=== PATIENT | male | born 1990 | race American Indian/Alaskan Native ===

== ENCOUNTER 2016-09-26 16:30 | Inpatient (IN) | payer BC ==
[2016-09-26] MEDS ORDERED: AMBIEN PO PRN (17:21)
[2016-09-26] MEDS ORDERED: ALUM-MAG HYDROX-SIMETH 200-200-20MG/5ML PO PRN (17:21)
[2016-09-26] MEDS ORDERED: D50W (25GM) IV PRN (17:21)
[2016-09-26] MEDS ORDERED: LEVEMIR SUB-Q SCH (21:00)
[2016-09-26] MEDS: LOPRESSOR PO SCH (22:48)
[2016-09-27 06:19] LABS: Hematocrit 35.7 % (35.5-45.6); Hemoglobin 11.6 gm/dl (11.8-15.2); Mean Corpuscular HGB Conc 33 % (32-34); Mean Corpuscular Volume 78 fl (84-94); Platelet Count 415 K/mm3 (140-440); Red Blood Count 4.61 M/mm3 (3.65-5.03); Red Cell Distribution Width 15.5 % (13.2-15.2); White Blood Count 11.6 K/mm3 (4.5-11.0)
[2016-09-27 06:27] LABS: Mean Corpuscular Hemoglobin 25 pg (28-32)
[2016-09-27 07:27] LABS: Alanine Aminotransferase 109 units/L (7-56); Albumin 3.6 g/dL (3.9-5); Albumin/Globulin Ratio 0.9 %; Alkaline Phosphatase 92 units/L (35-129); Anion Gap 24 mmol/L; BUN/Creatinine Ratio 14.16; Bilirubin,Total 0.5 mg/dL (0.1-1.2); Blood Urea Nitrogen 17 mg/dL (9-20); Calcium 9.2 mg/dL (8.4-10.2); Carbon Dioxide 22 mmol/L (22-30); Chloride 98.3 mmol/L (98-107); Glucose 166 mg/dL (75-100); Potassium 4.2 mmol/L (3.6-5.0); Sodium 140 mmol/L (137-145); Total Protein 7.6 g/dL (6.3-8.2)
[2016-09-27] MEDS ORDERED: NOVOLOG SUB-Q SCH (07:30)
[2016-09-27 08:32] LABS: Blastocytes % (Manual) 0 %
[2016-09-27 08:34] LABS: Anisocytosis 1+; Polychromasia Few
[2016-09-27 08:35] LABS: Hypochromasia 1+
[2016-09-27 08:36] LABS: Diff Status Complete
[2016-09-27] MEDS: NORVASC PO SCH (09:56)
[2016-09-27] MEDS: LOPRESSOR PO SCH ×2 (09:57→22:00)
[2016-09-27] MEDS: LOVENOX SUB-Q SCH (09:58)
--- NOTE | 2016-09-27 10:19 | History and Physical Report ---
History of Present Illness Date: 09/27/16 Referring Facility: [facility] Date of admission: 09/26/16 16:30 Chief Complaint: critical illness myopathy History of present illness: POST ADMISSION PHYSICIAN EVALUATION ONSET DATE: 09/05/2016 IMPAIRMENT GROUP CODE: 03.8 ETIOLOGIC DIAGNOSIS: critical illness myopathy STATUS CHANGES SINCE PREADMISSION SCREENING: PAS has been reviewed. In comparison, pt with shortness of breath with activity and desat into the 80s with therapy this AM; recovered with initiation of oxygen. Pt denies shortness of breath at rest; will wean oxygen as tolerated. Pt also with some lightheadedness with initial standing; follow for orthostasis with prolonged hospital course. Pt continues with generalized weakness; remains an appropriate candidate for IRU admission. 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 male admitted to [facility] due to 2-3 day course of nausea and vomiting; also with associated altered mental status and dysarthria upon presentation. Pt was intubated by EMS; blood sugar >500. Pt treated for DKA, new diagnosis on admission; acute renal failure, now resolved; aspiration pneumonia, treated with levaquin and Zyvox; sepsis secondary to Group B Strep, treated with Zosyn, Vanc, Ancef, Meropenem during course. Pt extubated on 2016; noted to have severe physical deconditioning. Passed swallowing evaluation for regular consistency diet. Pt is now admitted to IRU for aggressive therapies and ongoing medical management. Past History Past Medical History: diabetes, hypertension Past Surgical History: No surgical history (pt denies) Social history: single, lives with family. denies: smoking, alcohol abuse Family history: diabetes, hypertension Medications and Allergies Allergies Allergy/AdvReac Type Severity Reaction Status Date / Time No Known Allergies Allergy Unverified 09/26/16 16:55 Active Meds: Active Medications Al Hydrox/Mg Hydrox/Simethicone (Alum-Mag Hydrox-Simeth [id number]/5ml) 30 ml PO Q4H PRN PRN Reason: Indigestion Amlodipine Besylate (Norvasc) 10 mg PO QDAY [facility] Last Admin: 09/27/16 09:56 Dose: 10 mg Dextrose (D50w (25gm)) 50 ml IV PRN PRN PRN Reason: Hypoglycemia Enoxaparin Sodium (Lovenox) 40 mg SUB-Q QDAY [facility] Last Admin: 09/27/16 09:58 Dose: 40 mg Insulin Aspart (Novolog) 15 units SUB-Q AC [facility] Last Admin: 09/27/16 09:26 Dose: Not Given Insulin Detemir (Levemir) 65 units SUB-Q QHS [facility] Last Admin: 09/26/16 22:44 Dose: 65 units Metoprolol Tartrate (Lopressor) 50 mg PO BID [facility] Last Admin: 09/27/16 09:57 Dose: 50 mg Zolpidem Tartrate (Ambien) 5 mg PO QHS PRN PRN Reason: Sleep Review of Systems All systems: negative Constitutional: poor appetite Ears, nose, mouth and throat: no headache Cardiovascular: lightheadedness Respiratory: dyspnea on exertion, no cough Gastrointestinal: nausea (intermittently with meals), no vomiting, no constipation (last BM on yesterday) Genitourinary Male: no dysuria Musculoskeletal: muscle weakness, gait dysfunction Neurological: no parathesias, no numbness Exam - Constitutional Vitals: Vital Signs - 12hr 09/26/16 09/27/16 09/27/16 22:48 07:16 09:56 Temperature 97.6 F Pulse Rate 106 H 104 H Pulse Rate [ 104 H Right Radial] Respiratory 18 Rate Blood Pressure 150/76 155/80 Blood Pressure 155/80 [Right Arm] O2 Sat by Pulse 98 Oximetry 09/27/16 09:57 Temperature Pulse Rate 104 H Pulse Rate [ Right Radial] Respiratory Rate Blood Pressure 155/80 Blood Pressure [Right Arm] O2 Sat by Pulse Oximetry General appearance: no acute distress, obese, other (mother present; sitting in WC) - EENT Eyes: EOM intact ENT: hearing intact - Neck Neck: supple, normal ROM - Respiratory Respiratory effort: normal (oxygen via nasal cannula) Respiratory: bilateral: CTA - Cardiovascular Rhythm: regular Heart Sounds: Present: S1 & S2 - Extremities Extremities: No edema - Gastrointestinal General gastrointestinal: Present: soft, non-tender, non-distended, normal bowel sounds - Integumentary Integumentary: Present: dry - Musculoskeletal Musculoskeletal: generalized weakness (mild tremors noted with AROM and any applied resistance) - Neurologic Neurologic: CNII-XII intact, moves all extremities (3/5 strength) - Psychiatric Psychiatric: appropriate mood/affect, intact judgment & insight, memory intact, cooperative - Allied health notes FIMS assesment as documented by PT/OT/ST: Social interaction/Memory/Problem solving Social Interaction FIM Score 7. Complete [place] (Interacts appropriately. Controls temper.) Memory FIM Score 6. Modified [place](Mild difficulty remembering people/routines.) Problem Solving FIM Score 7. Complete [place] (Solves complex problems. Self corrects.) Eating Eating Device Adapted Utensil,Adapted Cup,Adapted Plate/Bowl, Non-Slip Pad,Plate Guard,ADL Orthotic Eating FIM Score 5. Supervision/Set-Up (Needs help w/ containers , cutting meat, etc.) - Labs CBC & Chem 7: 09/27/16 05:31 09/27/16 05:31 Labs: Laboratory Results - last 72 hr 09/27/16 09/27/16 09/27/16 05:31 05:31 05:31 WBC 11.6 H RBC 4.61 Hgb 11.6 L Hct 35.7 MCV 78 L MCH 25 L MCHC 33 RDW 15.5 H Plt Count 415 Add Manual Diff Complete Total Counted 100 Seg Neuts % (Manual) 84.0 H Band Neutrophils % 1.0 Lymphocytes % (Manual) 7.0 L Reactive Lymphs % (Man) 0 Monocytes % (Manual) 0 Eosinophils % (Manual) 4.0 Basophils % (Manual) 1.0 Metamyelocytes % 1.0 Myelocytes % 2.0 Promyelocytes % 0 Blast Cells % 0 Nucleated RBC % Not Reportable Seg Neutrophils # Man 9.7 H Band Neutrophils # 0.1 Lymphocytes # (Manual) 0.8 L Abs React Lymphs (Man) 0.0 Monocytes # (Manual) 0.0 Eosinophils # (Manual) 0.5 H Basophils # (Manual) 0.1 Metamyelocytes # 0.1 Myelocytes # 0.2 Promyelocytes # 0.0 Blast Cells # 0.0 WBC Morphology Not Reportable Hypersegmented Neuts Not Reportable Hyposegmented Neuts Not Reportable Hypogranular Neuts Not Reportable Smudge Cells Not Reportable Toxic Granulation Not Reportable Toxic Vacuolation Not Reportable Dohle Bodies Not Reportable Pelger-Huet Anomaly Not Reportable Nadja Rods Not Reportable Platelet Estimate Appears normal Clumped Platelets Not Reportable Plt Clumps, EDTA Not Reportable Large Platelets Not Reportable Giant Platelets Not Reportable Platelet Satelliting Not Reportable Plt Morphology Comment Not Reportable RBC Morphology Not Reportable Dimorphic RBCs Not Reportable Polychromasia Few Hypochromasia 1+ Poikilocytosis Not Reportable Anisocytosis 1+ Microcytosis Not Reportable Macrocytosis Not Reportable Spherocytes Not Reportable Pappenheimer Bodies Not Reportable Sickle Cells Not Reportable Target Cells Not Reportable Tear Drop Cells Not Reportable Ovalocytes Not Reportable Helmet Cells Not Reportable Francis-Dinwiddie Bodies Not Reportable [place] Rings Not Reportable Shannan Cells Not Reportable Bite Cells Not Reportable Crenated Cell Not Reportable Elliptocytes Not Reportable Acanthocytes (Spur) Not Reportable Rouleaux Not Reportable Hemoglobin C Crystals Not Reportable Schistocytes Not Reportable Malaria parasites Not Reportable Edward Bodies Not Reportable Hem Pathologist Commnt Sent to pathology Sodium 140 Potassium 4.2 Chloride 98.3 Carbon Dioxide 22 Anion Gap 24 BUN 17 Creatinine 1.2 Estimated GFR > 60 BUN/Creatinine Ratio 14.16 Glucose 166 H Hemoglobin A1c 11.1 H Calcium 9.2 Total Bilirubin 0.5 AST 88 H ALT 109 H Alkaline Phosphatase 92 Total Protein 7.6 Albumin 3.6 L Albumin/Globulin Ratio 0.9 Assessment and Plan Assessment and plan: 26 y.o. male newly diagnosed with DM, in DKA on acute care admission; s/p acute respiratory failure, extubated on 09/16; acute renal failure; aspiration pneumonia ; sepsis secondary to Group B Strep; critical illness myopathy leading to generalized weakness and gait dysfunction. The patient is medically stable, however, requires ongoing medical management. Pt is appropriate for inpatient rehabilitation admission and is thought to be able to tolerate at least 3 hours of therapy a day, 5 days a week including 1.5 hours of physical therapy and 1.5 hours of occupational therapy. Patient is able to understand and follow basic directions and has attainable rehab goals. Potential barriers/complications include falls, DVT, PE, hypoglycemia, hypotension, syncope, depression. Plan 1. Rehabilitation- Pt will undergo multidisciplinary/integrative rehab PT/OT, Nursing. Areas to be addressed include, but are not limited to PT for mobility , strengthening, transfer training, ROM, endurance, stairs, balance; OT for ADLs , household tasks, adaptive equipment; Nursing for carryover of therapies, pain control, education, skin integrity, medication management, bowel/bladder management; Nutrition as needed; supervisor volunteer services for discharge planning and equipment needs. Potential interventions include appropriate assistive device or adaptive equipment. Expected overall level of functional improvement by discharge is Mary to supervision for ADLs, gait, and transfers. Pt will tentatively be discharged home with outpatient PT/OT. Estimated length of stay is 10-14 days. 2. critical illness myopathy- ongoing PT/OT to address weakness, proximal> distal; pt educated on safety due to weakness; short of breath with activity with drop in oxygen saturation to 80s; Oxygen initiated; wean as tolerated 3. DM- pt with decreased po intake; blood sugars 140s-160s since admission; HgA1c 11.2. Pt at high risk for hypoglycemia with low po intake and high doses of insulin on admission; will decrease levemir to 10U QHS and change mealtime insulin to sliding scale (on 65U levemir and 15U AC on admission from OSH); follow and adjust as needed; Dietitian consulted; education provided to pt and mother regarding DM; recommend pt obtain on line csr at discharge (will refer) 4. HTN- continue current regimen; follow closely, avoid hypotension 5. ?diabetic gastroparesis- intermittent nausea with meals; add prn reglan; no vomiting or nausea on today 6. 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
[2016-09-27] MEDS: NOVOLOG SUB-Q SCH ×2 (12:31→17:25)
--- NOTE | 2016-09-27 21:46 | IRU Plan of Care ---
Interdisciplinary Plan of Care - IP IRU INTERDISCIPLINARY PLAN: [facility] Inpatient Rehab Unit Plan of Care IRU Interdisciplinary Care Plan Start: 09/26/16 18: 15 Freq: Admission then PRN Status: Active Document 09/27/16 18:17 DB (Rec: 09/27/16 18:20 DB [id number]) Interdisciplinary Problem List Interdisciplinary Problem List Interdisciplinary Problem List Impaired Bathing/Grooming Query Text:Answers will Trigger Problems Impaired Dressing and Outcomes on Worklist. Impaired Mobility Impaired Transfers Impaired Toileting Pain Management Knowledge Deficits Impaired Home Management Impaired Safety Medications Education Diabetes Education IRU Interdisciplinary Care Plan Therapy Services Therapy Services Will Include: Physical Therapy Query Text:Patient will be seen for a Occupational Therapy minimum of 3 hours of daily therapy 5 out of 7 days a week. Therapy intensity may be adjusted within a 7 consecutive day period to effectively serve the individual needs of the patient. Treatment Frequency/Intensity/Duration Treatment Frequency 5 days per week Treatment Intensity 1.5 hours per discipline (PT/OT ) daily Treatment Duration 10 - 14 days Problem Area: Eating/Swallowing Eating/Swallowing Outcomes Eating/Swallowing Interventions Problem Area: Bathing/Grooming Bathing/Grooming Outcomes Improve [place] w/ Grooming Improve [place] w/ Bathing Bathing/Grooming Interventions ADL Training Use of Assistive Devices Therapeutic Exercise Therapeutic Activity Balance Work Activity Tolerance Work Patient/Caregiver Education Problem Area: Dressing Dressing Outcomes Improve [place] w/ UB Dressing Improve [place] w/ LB Dressing Dressing Interventions ADL Training Use of Assistive Devices Therapeutic Exercise Balance Work Patient/Caregiver Education Problem Area: Mobility Mobility Outcomes Improve [place] w/ Bed Mobility Improve [place] w/ Ambulation Improve [place] w/ Stairs /Curb Improve [place] w/ Wheelchair Mobility Interventions Therapeutic Exercise Neuromuscular Re-Ed. Modalities Use of Assistive Devices Patient/Caregiver Education Bed Mobility Work Gait Training W/C Mobility Work Problem Area: Transfers Transfers Outcomes Improve [place] w/ Bed Transfers Improve [place] w/ Toilet Transfers Improve [place] w/ Tub/ Shower Transfers Improve [place] w/ Car Transfers Transfers Interventions Transfer Training Therapeutic Exercise Activity Tolerance Work Use of Assistive Devices Patient/Caregiver Education Problem Area: Bowel/Bladder Managment Bowel/Bladder Outcomes Bowel/Bladder Interventions Problem Area: Toileting Toileting Outcomes Improve [place] w/ Toileting Toileting Interventions ADL Training Balance Work Use of Assistive Devices Patient/Caregiver Education Problem Area: Nutrition Nutrition Outcomes Understand and Comply w/ Diet Improve/Maintain Oral Intake Nutrition Interventions Nutritional Counseling Monitor Nutrient Intake Patient/Caregiver Education Problem Area: Comprehension Comprehension Outcomes Comprehension Interventions Problem Area: Expression Expression Outcomes Expression Interventions Problem Area: Problem Solving Problem Solving Outcomes Problem Solving Interventions Problem Area: Memory Memory Outcomes Memory Interventions Problem Area: Pain Management Pain Management Outcomes Demonstrate/Verbalize Pain Strategies Pain Management Interventions Medication Management Positioning/Turning Patient/Caregiver Education Problem Area: Knowledge Deficits Knowledge Deficits Outcomes Demonstrate Ability to Manage Blood Glucose Knowledge Deficits Interventions Disease/Injury/Sx. Intervention Education Medication Use Education Disease Management Education Health Maintainence Education Safety Education Problem Area: Skin/Tissue Integrity Skin/Tissue Integrity Outcomes Demonstrate Understanding of Pressure Relief Skin/Tissue Integrity Interventions Skin/Wound Care Pressure Relief Instruction Positioning/Turning Problem Area: Social Interaction Social Interaction Outcomes Social Interaction Interventions Problem Area: Adjustment to Disability Adjustment to Disability Outcomes Adjustment to Disability Interventions Problem Area: Discharge Concerns Discharge Concerns Outcomes Discharge Home w/ Necessary Equipment Have Home Health/Outpatient Services Discharge Concerns Interventions Discharge Planning Family/Caregiver Conference Family/Caregiver Training Problem Area: Community Reintegration Community Reintegration Outcomes Demonstrate Understanding of Community Resources Community Reintegration Interventions Provide Community Resources Problem Area: Home Management Home Management Outcomes Improve [place] w/ Home Management Home Management Interventions Clothing Care Activity Tolerance Work Patient/Caregiver Education Problem Area: Safety Safety Outcomes Provide Safe Environment Perform Selfcare Safely Demonstrate Good Safety w/ Transfers/Mobility Safety Interventions Identify Fall Risk [place] Pt. to Environment Reduce Environmental Hazards Problem Area: Medication Education Medication Education Outcomes Patient/Caregiver will Verbalize Understanding of Medications Medication Education Interventions Explain Administration/Side Effects/Interactions Problem Area: Diabetes Education Diabetes Education Outcomes Demonstrate Knowledge of Resources Availlable in Diabetic Ed. Folder Diabetes Education Interventions Give Pt. Diabetes Education Folder Discuss Pathophysiology of Diabetes Problem Area: Oxygenation Oxygenation Outcomes Oxygenation Interventions Problem Area: Cardiovascular Cardiovascular Outcomes Cardiovascular Interventions Physician Only Medical Prognosis and Rehabilitation Patient demonstrates good Potential (Completed by Physician) rehab potential. Medical Prognosis: Good This plan of care has been developed based on the findings from the pre- admission assessment, post admission physician evaluation, information gathered from the assessments from all therapy disciplines and other pertinent clinicians. The plan of care has been reviewed and discussed in collaboration with the interdisciplinary team. The plan of care will be reviewed and updated at least weekly. 26 y.o. male newly diagnosed with DM, in DKA on acute care admission; s/p acute respiratory failure, extubated on 09/16; acute renal failure; aspiration pneumonia ; sepsis secondary to Group B Strep; critical illness myopathy leading to generalized weakness and gait dysfunction. The patient remains at risk for falls, DVT, PE, hypoglycemia, hypotension, syncope, depression. Pt is with decreased po intake; will decrease scheduled insulin doses to avoid hypoglycemia. Continue DM education with both pt and mother during course. Will need to follow oxygen saturations close; noted dyspnea on exertion leading to desaturations with therapies on today. Pt placed on oxygen via nasal cannula ; wean as tolerated. Pt continues with functional deficits; remains an appropriate candidate for IRU admission.
[2016-09-27] MEDS: LEVEMIR SUB-Q SCH (22:00)
[2016-09-28] MEDS: LOVENOX SUB-Q SCH (08:59)
[2016-09-28] MEDS: NORVASC PO SCH (09:00)
[2016-09-28] MEDS: LOPRESSOR PO SCH ×2 (09:00→22:43)
[2016-09-28] MEDS: NOVOLOG SUB-Q SCH ×3 (09:03→17:15)
[2016-09-28] MEDS: REGLAN PO PRN (11:41)
[2016-09-28] MEDS: LEVEMIR SUB-Q SCH (23:16)
[2016-09-29] MEDS: NOVOLOG SUB-Q SCH ×3 (07:39→17:00)
[2016-09-29] MEDS: NORVASC PO SCH (09:01)
[2016-09-29] MEDS: LOPRESSOR PO SCH (09:02)
[2016-09-29] MEDS: LOVENOX SUB-Q SCH (09:02)
[2016-09-30] MEDS: LOPRESSOR PO SCH ×3 (00:02→22:24)
[2016-09-30] MEDS: LEVEMIR SUB-Q SCH ×2 (00:03→22:24)
[2016-09-30 07:06] LABS: Hematocrit 35.8 % (35.5-45.6); Hemoglobin 11.7 gm/dl (11.8-15.2); Mean Corpuscular HGB Conc 33 % (32-34); Mean Corpuscular Volume 78 fl (84-94); Platelet Count 374 K/mm3 (140-440); Red Blood Count 4.59 M/mm3 (3.65-5.03); Red Cell Distribution Width 15.6 % (13.2-15.2); White Blood Count 9.5 K/mm3 (4.5-11.0)
[2016-09-30 07:17] LABS: Mean Corpuscular Hemoglobin 26 pg (28-32)
[2016-09-30 07:27] LABS: Alanine Aminotransferase 66 units/L (7-56); Albumin 4.1 g/dL (3.9-5); Albumin/Globulin Ratio 1.1 %; Alkaline Phosphatase 87 units/L (35-129); Anion Gap 20 mmol/L; BUN/Creatinine Ratio 11.11; Bilirubin,Total 0.5 mg/dL (0.1-1.2); Blood Urea Nitrogen 10 mg/dL (9-20); Calcium 9.2 mg/dL (8.4-10.2); Carbon Dioxide 23 mmol/L (22-30); Chloride 96.4 mmol/L (98-107); Glucose 121 mg/dL (75-100); Potassium 3.7 mmol/L (3.6-5.0); Sodium 136 mmol/L (137-145); Total Protein 7.9 g/dL (6.3-8.2)
[2016-09-30] MEDS: NOVOLOG SUB-Q SCH ×3 (08:05→17:30)
[2016-09-30] MEDS: NORVASC PO SCH (09:34)
[2016-09-30] MEDS: LOVENOX SUB-Q SCH (09:36)
[2016-09-30] MEDS: REGLAN PO PRN (11:43)
--- NOTE | 2016-09-30 16:28 | Progress Note ---
Assessment and Plan 26 y.o. male newly diagnosed with DM, in DKA on acute care admission; s/p acute respiratory failure, extubated on 09/16; acute renal failure; aspiration pneumonia ; sepsis secondary to Group B Strep; critical illness myopathy leading to generalized weakness and gait dysfunction - critical illness myopathy- continue aggressive therapies to address generalized weakness - DM- blood glucose ranging from 91-157; levemir held on last night; not requiring sliding scale; continue to follow closely and provide DM education; insulin teaching with pt and mother - HTN- consider increasing lopressor if BP remains elevated - DVT px- lovenox - Patient Problems (1) Critical illness myopathy Current Visit: Yes Status: Acute (2) Diabetes Current Visit: Yes Status: Acute Qualifiers: Diabetes mellitus type: type 2 Diabetes mellitus complication status: with hyperglycemia Diabetes mellitus complication detail: D Diabetic retinopathy severity: D Proliferative retinopathy type: P Diabetes mellitus macular edema: D 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 Pt without any acute events over weekend. No new complaints on today, denied dizziness/lightheadedness with therapy Objective - Constitutional Vitals: Vital Signs - 12hr 09/30/16 09/30/16 09/30/16 08:00 08:15 09:34 Temperature 99.1 F Pulse Rate 110 H Pulse Rate [ 110 H Right Brachial] Respiratory 22 Rate Blood Pressure 156/89 Blood Pressure 156/89 [Right Arm] O2 Sat by Pulse 98 98 Oximetry 09/30/16 09:35 Temperature Pulse Rate 110 H Pulse Rate [ Right Brachial] Respiratory Rate Blood Pressure 156/89 Blood Pressure [Right Arm] O2 Sat by Pulse Oximetry General appearance: Present: no acute distress, obese - EENT Eyes: EOM intact ENT: hearing intact - Neck Neck: supple, normal ROM - Respiratory Respiratory effort: normal Respiratory: bilateral: CTA - Cardiovascular Heart Sounds: Present: S1 & S2 (mildly tachy) Extremities: No edema - Gastrointestinal General gastrointestinal: Present: non-tender, non-distended, normal bowel sounds - Integumentary Integumentary: clear - Neurologic Neurologic: CNII-XII intact, moves all extremities - Psychiatric Psychiatric: appropriate mood/affect, cooperative - Allied health notes Allied health notes reviewed: PT (CGA for transfers and gait) - Labs CBC & Chem 7: 09/30/16 06:53 09/30/16 06:53 Labs: Abnormal lab results 09/26/16 09/27/16 09/27/16 Range/Units 20:54 04:24 05:59 Hgb (11.8-15.2) gm/dl MCV (84-94) fl MCH (28-32) pg RDW (13.2-15.2) % Sodium (137-145) mmol/L Chloride (98-107) mmol/L Glucose (75-100) mg/dL POC Glucose 128 H 132 H 157 H (70-105) AST (5-40) units/L ALT (7-56) units/L 09/27/16 09/27/16 09/27/16 Range/Units 12:06 16:14 21:26 Hgb (11.8-15.2) gm/dl MCV (84-94) fl MCH (28-32) pg RDW (13.2-15.2) % Sodium (137-145) mmol/L Chloride (98-107) mmol/L Glucose (75-100) mg/dL POC Glucose 149 H 141 H 140 H (70-105) AST (5-40) units/L ALT (7-56) units/L 09/28/16 09/28/16 09/28/16 Range/Units 06:47 11:30 16:41 Hgb (11.8-15.2) gm/dl MCV (84-94) fl MCH (28-32) pg RDW (13.2-15.2) % Sodium (137-145) mmol/L Chloride (98-107) mmol/L Glucose (75-100) mg/dL POC Glucose 132 H 113 H 107 H (70-105) AST (5-40) units/L ALT (7-56) units/L 03/09/29/16 09/29/16 Range/Units 21:34 06:32 11:43 Hgb (11.8-15.2) gm/dl MCV (84-94) fl MCH (28-32) pg RDW (13.2-15.2) % Sodium (137-145) mmol/L Chloride (98-107) mmol/L Glucose (75-100) mg/dL POC Glucose 119 H 128 H 111 H (70-105) AST (5-40) units/L ALT (7-56) units/L 09/29/16 09/30/16 09/30/16 Range/Units 21:19 06:53 06:53 Hgb 11.7 L (11.8-15.2) gm/dl MCV 78 L (84-94) fl MCH 26 L (28-32) pg RDW 15.6 H (13.2-15.2) % Sodium 136 L (137-145) mmol/L Chloride 96.4 L (98-107) mmol/L Glucose 121 H (75-100) mg/dL POC Glucose 117 H (70-105) AST 43 H (5-40) units/L ALT 66 H (7-56) units/L 09/30/16 Range/Units 07:03 Hgb (11.8-15.2) gm/dl MCV (84-94) fl MCH (28-32) pg RDW (13.2-15.2) % Sodium (137-145) mmol/L Chloride (98-107) mmol/L Glucose (75-100) mg/dL POC Glucose 115 H (70-105) AST (5-40) units/L ALT (7-56) units/L
[2016-10-01] MEDS: NOVOLOG SUB-Q SCH ×3 (08:20→17:17)
[2016-10-01] MEDS: LOPRESSOR PO SCH ×3 (08:21→21:21)
[2016-10-01] MEDS: LOVENOX SUB-Q SCH (08:21)
[2016-10-01] MEDS: NORVASC PO SCH (08:22)
[2016-10-01] MEDS ORDERED: LOPRESSOR PO SCH (09:40)
--- NOTE | 2016-10-01 15:57 | Progress Note ---
Assessment and Plan 26 y.o. male newly diagnosed with DM, in DKA on acute care admission; s/p acute respiratory failure, extubated on 09/16; acute renal failure; aspiration pneumonia ; sepsis secondary to Group B Strep; critical illness myopathy leading to generalized weakness and gait dysfunction - critical illness myopathy- tolerating PT/OT; desats with increased activity - DM- blood glucose ranging from 94-127 over last 24 hours; levemir discontinued ; still not requiring sliding scale; will trial ability to take metformin; currently diet controlled - HTN- lopressor increased on today; follow - DVT px- lovenox - team conference held on today- pt is Mary for eating, grooming, bathing, dressing; SBA for toileting, toilet/shower transfers; Isidro for bed/chair/WC transfers; CGA for bed mobility; ambulating 80 feet CGA with RW; CGA for stairs. Barriers- desat, decreased po intake. Anticipated d/c date is 10/09. - Patient Problems (1) Critical illness myopathy Current Visit: Yes Status: Acute (2) Diabetes Current Visit: Yes Status: Acute Qualifiers: Diabetes mellitus type: type 2 Diabetes mellitus complication status: with hyperglycemia Diabetes mellitus complication detail: D Diabetic retinopathy severity: D Proliferative retinopathy type: P Diabetes mellitus macular edema: D Diabetes mellitus custodial insulin use: without terminal operator use Laterality: L Chronic kidney disease stage: C Qualified Code(s): E11.65 - Type 2 diabetes mellitus with hyperglycemia (3) HTN (hypertension) Current Visit: Yes Status: Acute Qualifiers: Hypertension type: essential hypertension Qualified Code(s): I10 - Essential (primary) hypertension (4) Unsteady gait Current Visit: Yes Status: Acute Subjective Date of service: 10/01/16 Principal diagnosis: critical illness myopathy Interval history: Pt seen in room this afternoon, F/U visit IPR, critical illness myopathy following complicated hospital course due to new onset DM. Still with intermittently low po intake; reports eating dinner last night and lunch today better than prior; educated on need to increase intake, discussed case with dietitian. Reports ability to remove oxygen when at rest, however, noted to desat with OT this AM into 80s; denies shortness of breath currently Objective - Constitutional Vitals: Vital Signs - 12hr 10/01/16 10/01/16 10/01/16 08:07 08:21 08:22 Temperature 98.7 F Pulse Rate 106 H 106 H Pulse Rate [ 106 H Right Brachial] Respiratory 22 Rate Blood Pressure 159/81 159/81 Blood Pressure 159/81 [Right Arm] O2 Sat by Pulse 99 Oximetry General appearance: Present: no acute distress, obese, other (lying in bed) - EENT Eyes: EOM intact ENT: hearing intact - Neck Neck: supple, normal ROM - Respiratory Respiratory effort: normal Respiratory: bilateral: CTA - Cardiovascular Rhythm: regular Heart Sounds: Present: S1 & S2 Extremities: No edema - Gastrointestinal General gastrointestinal: Present: soft, non-tender, non-distended, normal bowel sounds - Integumentary Integumentary: clear - Neurologic Neurologic: CNII-XII intact, moves all extremities - Psychiatric Psychiatric: appropriate mood/affect, intact judgment & insight, memory intact, cooperative - Labs CBC & Chem 7: 09/30/16 06:53 09/30/16 06:53 Labs: Abnormal lab results 09/30/16 10/01/16 10/01/16 Range/Units 17:05 06:33 11:48 POC Glucose 113 H 127 H 106 H (70-105)
[2016-10-01] MEDS: GLUCOPHAGE PO SCH (17:17)
[2016-10-02] MEDS: NOVOLOG SUB-Q SCH ×3 (07:31→16:47)
[2016-10-02] MEDS: LOVENOX SUB-Q SCH (07:56)
[2016-10-02] MEDS: LOPRESSOR PO SCH ×2 (08:02→22:15)
[2016-10-02] MEDS: NORVASC PO SCH (08:03)
[2016-10-02] MEDS: GLUCOPHAGE PO SCH ×2 (08:03→16:48)
--- NOTE | 2016-10-02 11:48 | Progress Note ---
Assessment and Plan 26 y.o. male newly diagnosed with DM, in DKA on acute care admission; s/p acute respiratory failure, extubated on 09/16; acute renal failure; aspiration pneumonia ; sepsis secondary to Group B Strep; critical illness myopathy leading to generalized weakness and gait dysfunction - critical illness myopathy- minimal desat with activity on today; improved independence and strength since admission - unsteady gait- much improved since admission; occasional knee hyperextension noted on today - DM- blood glucose remain well controlled; follow on metformin BID - HTN- stable - DVT px- lovenox - Patient Problems (1) Critical illness myopathy Current Visit: Yes Status: Acute (2) Diabetes Current Visit: Yes Status: Acute Qualifiers: Diabetes mellitus type: type 2 Diabetes mellitus complication status: with hyperglycemia Diabetes mellitus complication detail: D Diabetic retinopathy severity: D Proliferative retinopathy type: P Diabetes mellitus macular edema: D Diabetes mellitus java technical manager insulin use: without java technical manager use Laterality: L Chronic kidney disease stage: C Qualified Code(s): E11.65 - Type 2 diabetes mellitus with hyperglycemia (3) HTN (hypertension) Current Visit: Yes Status: Acute Qualifiers: Hypertension type: essential hypertension Qualified Code(s): I10 - Essential (primary) hypertension (4) Unsteady gait Current Visit: Yes Status: Acute Subjective Date of service: 10/02/16 Principal diagnosis: critical illness myopathy Interval history: Pt seen in [facility] with PT, F/U visit IPR, critical illness myopathy following complicated hospital course due to new onset DM. Ambulating today without oxygen, desat to 88% then quickly recovered. O2 sats stable off oxygen at rest as well Objective - Constitutional Vitals: Vital Signs - 12hr 10/02/16 10/02/16 10/02/16 08:02 08:25 09:02 Temperature 97.9 F 97.9 F Pulse Rate 96 H Pulse Rate [ 96 H 96 H Right Brachial] Respiratory 20 20 Rate Blood Pressure 141/81 Blood Pressure 141/81 141/81 [Right Arm] O2 Sat by Pulse 99 99 Oximetry 10/02/16 09:44 Temperature Pulse Rate Pulse Rate [ Right Brachial] Respiratory Rate Blood Pressure Blood Pressure [Right Arm] O2 Sat by Pulse 99 Oximetry General appearance: Present: no acute distress, obese - EENT Eyes: EOM intact ENT: hearing intact - Neck Neck: supple, normal ROM - Respiratory Respiratory effort: normal Extremities: No edema - Gastrointestinal General gastrointestinal: Present: soft, non-tender - Integumentary Integumentary: clear - Neurologic Neurologic: CNII-XII intact, moves all extremities - Psychiatric Psychiatric: appropriate mood/affect, intact judgment & insight, memory intact, cooperative - Allied health notes Allied health notes reviewed: nursing (Mary for toilet transfers), PT (Mary for transfers and wheelchair mobility; CGA for stairs; ambulated 170 feet on today) - Labs CBC & Chem 7: 09/30/16 06:53 09/30/16 06:53 Labs: Abnormal lab results 10/01/16 10/01/16 10/02/16 Range/Units 11:48 21:13 06:06 POC Glucose 106 H 107 H 120 H (70-105)
[2016-10-03] MEDS: NOVOLOG SUB-Q SCH ×3 (07:30→18:44)
[2016-10-03] MEDS: LOVENOX SUB-Q SCH (11:38)
[2016-10-03] MEDS: NORVASC PO SCH (11:39)
[2016-10-03] MEDS: GLUCOPHAGE PO SCH ×2 (11:41→18:43)
[2016-10-03] MEDS: LOPRESSOR PO SCH ×2 (11:41→23:12)
--- NOTE | 2016-10-03 17:01 | Progress Note ---
Assessment and Plan 26 y.o. male newly diagnosed with DM, in DKA on acute care admission; s/p acute respiratory failure, extubated on 09/16; acute renal failure; aspiration pneumonia ; sepsis secondary to Group B Strep; critical illness myopathy leading to generalized weakness and gait dysfunction - critical illness myopathy- continue therapies for ongoing strengthening - unsteady gait- trialed with cane on today; ambulated 170 feet; sat >94% - DM- blood glucose remain well controlled; essentially diet controlled only; not requiring sliding scale; only 1 dose of metformin (10/02 AM) which caused metallic taste in his mouth; blood glucose range 91-113 last 24 hours - HTN- better controlled - DVT px- lovenox - Patient Problems (1) Critical illness myopathy Current Visit: Yes Status: Acute (2) Diabetes Current Visit: Yes Status: Acute Qualifiers: Diabetes mellitus type: type 2 Diabetes mellitus complication status: with hyperglycemia Diabetes mellitus complication detail: D Diabetic retinopathy severity: D Proliferative retinopathy type: P Diabetes mellitus macular edema: D Diabetes mellitus senior care insulin use: without terminal worker use Laterality: L Chronic kidney disease stage: C Qualified Code(s): E11.65 - Type 2 diabetes mellitus with hyperglycemia (3) HTN (hypertension) Current Visit: Yes Status: Acute Qualifiers: Hypertension type: essential hypertension Qualified Code(s): I10 - Essential (primary) hypertension (4) Unsteady gait Current Visit: Yes Status: Acute Subjective Date of service: 10/03/16 Principal diagnosis: critical illness myopathy Interval history: Pt seen in dining room this afternoon, F/U visit IPR, critical illness myopathy following complicated hospital course due to new onset DM. Remains off oxygen without complaints of shortness of breath. Pt appears mildly anxious with baseline tremor, however, denies any anxiety Objective - Constitutional Vitals: Vital Signs - 12hr 10/03/16 10/03/16 10/03/16 08:00 11:39 11:41 Temperature 97.8 F Pulse Rate 97 H 97 H Pulse Rate [ 97 H Right Brachial] Respiratory 20 Rate Blood Pressure 152/89 152/89 Blood Pressure 152/89 [Right Arm] O2 Sat by Pulse 98 Oximetry General appearance: Present: obese - EENT Eyes: EOM intact ENT: hearing intact - Neck Neck: supple, normal ROM - Respiratory Respiratory effort: normal Extremities: No edema - Integumentary Integumentary: clear - Neurologic Neurologic: CNII-XII intact, moves all extremities - Psychiatric Psychiatric: appropriate mood/affect, intact judgment & insight, memory intact, cooperative - Allied health notes Allied health notes reviewed: PT (ambulated 170 feet ), OT (supervision for transfers; maintained oxygen saturations in the high 90s) - Labs CBC & Chem 7: 09/30/16 06:53 09/30/16 06:53 Labs: Abnormal lab results 10/03/16 Range/Units 06:21 POC Glucose 113 H (70-105)
[2016-10-04] MEDS: GLUCOPHAGE PO SCH (09:12)
[2016-10-04] MEDS: LOPRESSOR PO SCH ×2 (09:13→21:37)
[2016-10-04] MEDS: NORVASC PO SCH (09:14)
--- NOTE | 2016-10-04 14:06 | Progress Note ---
Assessment and Plan 26 y.o. male newly diagnosed with DM, in DKA on acute care admission; s/p acute respiratory failure, extubated on 09/16; acute renal failure; aspiration pneumonia ; sepsis secondary to Group B Strep; critical illness myopathy leading to generalized weakness and gait dysfunction - critical illness myopathy- ongoing improvement in strengthening since admission - unsteady gait- ongoing gait training with cane - DM- continue to follow blood sugars closely to avoid hypoglycemia - HTN- SBP remains in 140s-150; will increase lopressor - DVT px- lovenox - Patient Problems (1) Critical illness myopathy Current Visit: Yes Status: Acute (2) Diabetes Current Visit: Yes Status: Acute Qualifiers: Diabetes mellitus type: type 2 Diabetes mellitus complication status: with hyperglycemia Diabetes mellitus complication detail: D Diabetic retinopathy severity: D Proliferative retinopathy type: P Diabetes mellitus macular edema: D Diabetes mellitus intermediate school teacher insulin use: without residential use Laterality: L Chronic kidney disease stage: C Qualified Code(s): E11.65 - Type 2 diabetes mellitus with hyperglycemia (3) HTN (hypertension) Current Visit: Yes Status: Acute Qualifiers: Hypertension type: essential hypertension Qualified Code(s): I10 - Essential (primary) hypertension (4) Unsteady gait Current Visit: Yes Status: Acute Subjective Date of service: 10/04/16 Principal diagnosis: critical illness myopathy Interval history: Pt seen in dining room this afternoon, F/U visit IPR, critical illness myopathy following complicated hospital course due to new onset DM. No new complaints overnight; tolerating lunch, no further complaints of nausea with food Objective - Constitutional Vitals: Vital Signs - 12hr 10/04/16 10/04/16 10/04/16 08:00 09:13 09:14 Pulse Rate 100 H 100 H Pulse Rate [ 100 H Right Brachial] Respiratory 20 Rate Blood Pressure 149/89 149/89 Blood Pressure 147/89 [Right Arm] O2 Sat by Pulse 97 Oximetry General appearance: Present: no acute distress, obese - EENT Eyes: EOM intact ENT: hearing intact - Neck Neck: supple, normal ROM - Respiratory Respiratory effort: normal Respiratory: bilateral: CTA - Cardiovascular Rhythm: regular Heart Sounds: Present: S1 & S2 - Gastrointestinal General gastrointestinal: Present: normal bowel sounds - Integumentary Integumentary: clear, warm - Neurologic Neurologic: CNII-XII intact, moves all extremities - Psychiatric Psychiatric: appropriate mood/affect, intact judgment & insight, memory intact, cooperative - Allied health notes Allied health notes reviewed: nursing (completed sponge bath without assistance this AM) - Labs CBC & Chem 7: 09/30/16 06:53 09/30/16 06:53 Labs: Abnormal lab results 10/04/16 Range/Units 06:35 POC Glucose 117 H (70-105)
[2016-10-05] MEDS: NOVOLOG SUB-Q SCH ×3 (08:25→18:04)
[2016-10-05] MEDS: LOVENOX SUB-Q SCH (09:48)
[2016-10-05] MEDS: GLUCOPHAGE PO SCH (09:49)
[2016-10-05] MEDS: NORVASC PO SCH (09:52)
[2016-10-05] MEDS: LOPRESSOR PO SCH ×2 (09:54→21:56)
[2016-10-06] MEDS: NOVOLOG SUB-Q SCH ×3 (09:01→17:00)
[2016-10-06] MEDS: NORVASC PO SCH (09:02)
[2016-10-06] MEDS: LOVENOX SUB-Q SCH (09:02)
[2016-10-06] MEDS: GLUCOPHAGE PO SCH ×2 (09:02→17:53)
[2016-10-06] MEDS: LOPRESSOR PO SCH ×2 (09:02→21:50)
[2016-10-07 05:04] LABS: Hematocrit 32.2 % (35.5-45.6); Hemoglobin 10.8 gm/dl (11.8-15.2); Mean Corpuscular HGB Conc 34 % (32-34); Mean Corpuscular Hemoglobin 26 pg (28-32); Mean Corpuscular Volume 78 fl (84-94); Platelet Count 254 K/mm3 (140-440); Red Blood Count 4.15 M/mm3 (3.65-5.03); Red Cell Distribution Width 15.7 % (13.2-15.2); White Blood Count 4.7 K/mm3 (4.5-11.0)
[2016-10-07 05:30] LABS: Anion Gap 19 mmol/L; BUN/Creatinine Ratio 2.85; Blood Urea Nitrogen 2 mg/dL (9-20); Calcium 8.7 mg/dL (8.4-10.2); Carbon Dioxide 23 mmol/L (22-30); Chloride 102.4 mmol/L (98-107); Glucose 106 mg/dL (75-100); Potassium 3.5 mmol/L (3.6-5.0); Sodium 141 mmol/L (137-145)
[2016-10-07] MEDS: NORVASC PO SCH (08:25)
[2016-10-07] MEDS: LOPRESSOR PO SCH ×2 (08:25→21:52)
[2016-10-07] MEDS: GLUCOPHAGE PO SCH ×2 (08:25→17:05)
[2016-10-07] MEDS: LOVENOX SUB-Q SCH (08:25)
[2016-10-07] MEDS: NOVOLOG SUB-Q SCH ×3 (08:26→17:05)
--- NOTE | 2016-10-07 12:46 | Progress Note ---
Assessment and Plan 26 y.o. male newly diagnosed with DM, in DKA on acute care admission; s/p acute respiratory failure, extubated on 09/16; acute renal failure; aspiration pneumonia ; sepsis secondary to Group B Strep; critical illness myopathy leading to generalized weakness and gait dysfunction - critical illness myopathy- ongoing improvement in strengthening since admission - unsteady gait- tolerating gait training well with straight cane; observed ambulating with distant supervision on today - DM- stable on metformin BID; will F/U with mother if she already has glucometer for home use after discharge - HTN- improved since admission - DVT px- lovenox - Patient Problems (1) Critical illness myopathy Current Visit: Yes Status: Acute (2) Diabetes Current Visit: Yes Status: Acute Qualifiers: Diabetes mellitus type: type 2 Diabetes mellitus complication status: with hyperglycemia Diabetes mellitus complication detail: D Diabetic retinopathy severity: D Proliferative retinopathy type: P Diabetes mellitus macular edema: D Diabetes mellitus half-way insulin use: without half-way use Laterality: L Chronic kidney disease stage: C Qualified Code(s): E11.65 - Type 2 diabetes mellitus with hyperglycemia (3) HTN (hypertension) Current Visit: Yes Status: Acute Qualifiers: Hypertension type: essential hypertension Qualified Code(s): I10 - Essential (primary) hypertension (4) Unsteady gait Current Visit: Yes Status: Acute Subjective Date of service: 10/07/16 Principal diagnosis: critical illness myopathy Interval history: Pt seen in PT gym this AM, F/U visit IPR, critical illness myopathy following complicated hospital course due to new onset DM. No acute events over weekend; no further reports of metallic taste from metformin. Objective - Constitutional Vitals: Vital Signs - 12hr 10/07/16 08:00 Temperature 98.7 F Pulse Rate [ 97 H Right Brachial] Respiratory 20 Rate Blood Pressure 111/66 [Right Arm] O2 Sat by Pulse 97 Oximetry General appearance: Present: no acute distress, obese - EENT Eyes: EOM intact ENT: hearing intact - Neck Neck: supple, normal ROM - Respiratory Respiratory effort: normal Respiratory: bilateral: CTA - Cardiovascular Rhythm: regular Heart Sounds: Present: S1 & S2 Extremities: No edema - Gastrointestinal General gastrointestinal: Present: soft, non-tender, non-distended, normal bowel sounds - Integumentary Integumentary: clear - Musculoskeletal Musculoskeletal: strength equal bilaterally - Neurologic Neurologic: CNII-XII intact, moves all extremities - Psychiatric Psychiatric: appropriate mood/affect, intact judgment & insight, memory intact, cooperative - Labs CBC & Chem 7: 10/07/16 04:53 10/07/16 04:53 Labs: Abnormal lab results 10/07/16 10/07/16 Range/Units 04:53 04:53 Hgb 10.8 L (11.8-15.2) gm/dl Hct 32.2 L (35.5-45.6) % MCV 78 L (84-94) fl MCH 26 L (28-32) pg RDW 15.7 H (13.2-15.2) % Potassium 3.5 L (3.6-5.0) mmol/L BUN 2 L (9-20) mg/dL Creatinine 0.7 L (0.8-1.5) mg/dL Glucose 106 H (75-100) mg/dL
[2016-10-08] MEDS: NOVOLOG SUB-Q SCH ×3 (08:37→17:08)
[2016-10-08] MEDS: LOVENOX SUB-Q SCH (08:37)
[2016-10-08] MEDS: LOPRESSOR PO SCH ×2 (08:38→21:53)
[2016-10-08] MEDS: NORVASC PO SCH (08:38)
[2016-10-08] MEDS: GLUCOPHAGE PO SCH ×2 (08:41→18:53)
--- NOTE | 2016-10-08 16:37 | Progress Note ---
Assessment and Plan 26 y.o. male newly diagnosed with DM, in DKA on acute care admission; s/p acute respiratory failure, extubated on 09/16; acute renal failure; aspiration pneumonia ; sepsis secondary to Group B Strep; critical illness myopathy leading to generalized weakness and gait dysfunction - critical illness myopathy- improved endurance and strength since admission - unsteady gait- progressed to SBA for gait - DM- maintain on metformin BID; will need glucometer for home use after discharge - HTN- stable - DVT px- lovenox - team conference held on today- last team conference was held on 09/24; at that time, pt was Mary for eating, grooming, bathing, dressing; SBA for toileting, toilet/shower transfers; Isidro for bed/chair/WC transfers; CGA for bed mobility; ambulating 80 feet CGA with RW; CGA for stairs. On today, pt has progressed to Mary for toileting, toilet transfers, bed mobility, bed/chair/WC transfers, wheelchair mobility; SBA for stairs and gait, ambulating 340 feet with cane; remains SBA for shower transfers. Pt is set for d/c home on tomorrow after family training with mother. - Patient Problems (1) Critical illness myopathy Current Visit: Yes Status: Acute (2) Diabetes Current Visit: Yes Status: Acute Qualifiers: Diabetes mellitus type: type 2 Diabetes mellitus complication status: with hyperglycemia Diabetes mellitus complication detail: D Diabetic retinopathy severity: D Proliferative retinopathy type: P Diabetes mellitus macular edema: D Diabetes mellitus rat exterminator insulin use: without rat exterminator use Laterality: L Chronic kidney disease stage: C Qualified Code(s): E11.65 - Type 2 diabetes mellitus with hyperglycemia (3) HTN (hypertension) Current Visit: Yes Status: Acute Qualifiers: Hypertension type: essential hypertension Qualified Code(s): I10 - Essential (primary) hypertension (4) Unsteady gait Current Visit: Yes Status: Acute Subjective Date of service: 10/08/16 Principal diagnosis: critical illness myopathy Interval history: Pt seen in dining room this AM, F/U visit IPR, critical illness myopathy following complicated hospital course due to new onset DM. No new events overnight; doing well Objective - Constitutional Vitals: Vital Signs - 12hr 10/08/16 10/08/16 08:38 08:45 Temperature 98.3 F Pulse Rate 87 Pulse Rate [ 81 Apical] Respiratory 20 Rate Blood Pressure 132/73 Blood Pressure 132/73 [Right Arm] O2 Sat by Pulse 97 Oximetry General appearance: Present: no acute distress, obese, other (eating breakfast) - EENT Eyes: EOM intact ENT: hearing intact - Neck Neck: supple, normal ROM - Respiratory Respiratory effort: normal Extremities: No edema - Integumentary Integumentary: clear - Neurologic Neurologic: CNII-XII intact, moves all extremities - Psychiatric Psychiatric: appropriate mood/affect, intact judgment & insight, memory intact, cooperative - Labs CBC & Chem 7: 10/07/16 04:53 10/07/16 04:53 Labs: Abnormal lab results 10/08/16 Range/Units 06:50 POC Glucose 106 H (70-105)
[2016-10-09] MEDS: LOVENOX SUB-Q SCH (08:22)
[2016-10-09] MEDS: LOPRESSOR PO SCH (08:22)
[2016-10-09] MEDS: GLUCOPHAGE PO SCH (08:23)
[2016-10-09] MEDS: NORVASC PO SCH (08:23)
[2016-10-09] MEDS: NOVOLOG SUB-Q SCH ×2 (08:23→12:24)
[2016-10-09 08:24] VITALS: BP 132/82
--- NOTE | 2016-10-09 14:42 | Discharge Summary ---
Providers - Providers Date of Admission: 09/26/16 16:30 Date of discharge: 10/09/16 Attending physician: DARLINE BARKER 09/27/16 08:44 Consult to Dietitian/Nutrition [CONS] Routine Physician Instructions: Reason For Exam: newly diagnosed diabetes Reason for Consult: Diet education 09/27/16 08:57 Speech Therapy Evaluation and Treat [CONS] Routine Reason For Exam: cognitive screen, encephalopathy 10/03/16 16:56 Occupational Therapy Evaluate and Treat [CONS] Routine Comment: Reason For Exam: resume therapy; critical illness myopathy Physical Therapy Evaluation and Treat [CONS] Routine Comment: Reason For Exam: resume therapy; critical illness myopathy Primary care physician: Dr. Noel Cochran Hospitalization Reason for admission: Critical Illness Myopathy Condition: Stable Hospital course: 26 y.o. male admitted to [facility] due to 2-3 day course of nausea and vomiting; also with associated altered mental status and dysarthria upon presentation. Pt was intubated by EMS; blood sugar >500. Pt treated for DKA, new diagnosis on admission; acute renal failure, now resolved; aspiration pneumonia, treated with levaquin and Zyvox; sepsis secondary to Group B Strep, treated with Zosyn, Vanc, Ancef, Meropenem during course. Pt extubated on 2016; noted to have severe physical deconditioning; likely critical illness myopathy. Passed swallowing evaluation for regular consistency diet. Pt admitted to IRU for aggressive therapies and ongoing medical management. Pt tolerated IRU course without difficulty. Pt initially transferred on insulin; however, blood sugars too low to tolerate and pt was transitioned to metformin BID; dietitian education provided to pt and mother during course. Blood pressure medications were adjusted during visit due to elevated readings; stable at time of discharge. Family/patient educated that pt's medication requirements for both blood pressure and blood sugars may change as his diet changes and pt loses weight. Pt showed significant functional improvement during course. On admission, pt required modA for bed mobility, transfers, gait 10 feet with RW; S/U for eating; maxA for remaining ADLs. At the time of discharge, pt progressed to Mary for bed mobility; supervision/SBA for transfers , stairs and gait, ambulating 340 feet with single point cane; Mary for ADLs, except supervision for shower transfers. Family training was completed with his mother prior to discharge. Pt is stable for d/c home. >30 mins spent on discharge process; medication reconciliation; pt/family education regarding medications, logging blood sugars and blood pressures, follow-up appts Disposition: DISCHARGED TO HOME OR SELFCARE - Discharge Diagnoses (1) Critical illness myopathy Status: Acute (2) Diabetes Status: Acute Qualifiers: Diabetes mellitus type: type 2 Diabetes mellitus complication status: with hyperglycemia Diabetes mellitus complication detail: D Diabetic retinopathy severity: D Proliferative retinopathy type: P Diabetes mellitus macular edema: D Diabetes mellitus care home insulin use: without care home use Laterality: L Chronic kidney disease stage: C Qualified Code(s): E11.65 - Type 2 diabetes mellitus with hyperglycemia (3) HTN (hypertension) Status: Acute Qualifiers: Hypertension type: essential hypertension Qualified Code(s): I10 - Essential (primary) hypertension (4) Unsteady gait Status: Acute Core Measure Documentation - Palliative Care Palliative Care/ Comfort Measures: Not Applicable - Core Measures Any of the following diagnoses?: none Exam - Constitutional Vitals: Temp Pulse Resp BP Pulse Ox 98.5 F 88 20 132/82 99 10/09/16 08:00 10/09/16 08:23 10/09/16 08:00 10/09/16 08:23 10/09/16 08:00 General appearance: Present: no acute distress, obese - EENT Eyes: Present: EOM intact ENT: hearing intact - Neck Neck: Present: supple, normal ROM - Respiratory Respiratory effort: normal - Extremities Extremities: No edema - Integumentary Integumentary: Present: clear - Musculoskeletal Musculoskeletal: strength equal bilaterally - Psychiatric Psychiatric: appropriate mood/affect, intact judgment & insight, memory intact, cooperative - Neurologic Neurologic: CNII-XII intact, moves all extremities Plan Activity: no driving until cleared by PCP, fall precautions Weight Bearing Status: Full Weight Bearing Diet: low salt, diabetic Special Instructions: physical therapy, occupational therapy, other (outpt therapies- [place], [place]) Durable Medical Equipment Needed Upon Discharge: Cane, other (tub bench; [facility] [place]) Additional Instructions: PCP in 3-5 days; Dr. Charlie Kline, Endocrinology, in 1- 2 weeks Prescriptions: amLODIPine [Norvasc] 10 mg PO QDAY #30 tablet metFORMIN [Glucophage] 500 mg PO BIDDIAB #60 tablet Metoprolol [Lopressor TAB] 100 mg PO BID #60 tablet
== END 2016-10-09 15:30 | disposition home or self-care (01) | DRG 91 ==
LOC: 3B 16:30
PROVIDERS: ADMIT Family Medicine; ATTEND Family Medicine
DX: G72.81 Critical illness myopathy (principal); J69.0 Pneumonitis due to inhalation of food and vomit; E13.10 Other specified diabetes mellitus with ketoacidosis without coma; J96.00 Acute respiratory failure, unspecified whether with hypoxia or hypercapnia; A41.89 Other specified sepsis; N17.9 Acute kidney failure, unspecified; I10 Essential (primary) hypertension; R26.81 Unsteadiness on feet; Z83.3 Family history of diabetes mellitus; Z82.49 Family history of ischemic heart disease and other diseases of the circulatory system
CPT/HCPCS: 36415; 80048; 80053; 82962; 83036; 85007; 85025; 85027; J1650; J1818